=== PATIENT | female | born 1950 | race Caucasian/White ===

== ENCOUNTER 2023-08-20 12:01 | Inpatient (IN) | payer MEDICAID ==
[2023-08-20] VITALS (33 sets, daily range): BP systolic 74–151; BP diastolic 42–127; TEMP 97.8–100.7; O2SAT 90–100
[~2023-08-20] VITALS: Ht 152.4 cm; Wt 72.6 kg
[2023-08-20] MEDS ORDERED: PIPERACI/TAZO 3.375GM/D5W 50ML PB IV ONE (12:24)
[2023-08-20 12:25] LABS: BASOPHILS % (AUTO) 0.3 % (0.0-2.0); EOSINOPHILS % (AUTO) 0.3 % (0.0-6.0); HEMATOCRIT 33 % (33-45); HEMOGLOBIN 10.2 g/dL (11.5-14.8); LYMPHOCYTES # (AUTO) 0.7 K/uL (0.8-4.8); MEAN CORPUSCULAR HEMOGLOBIN 32 PG (26.0-33.0); MEAN CORPUSCULAR HGB CONC 31 g/dl (31.0-36.0); MEAN CORPUSCULAR VOLUME 102 fL (82-100); MONOCYTES # (AUTO) 0.2 K/uL (0.1-1.30); MONOCYTES % (AUTO) 4.9 % (2.0-12.0); NEUTROPHILS # (AUTO) 2.6 K/uL (1.8-8.9); NEUTROPHILS % (AUTO) 75.5 % (43.0-81.0); PLATELET COUNT (AUTO) 138 K/uL (150-450); RED CELL DISTRIBUTION WIDTH 18.1 % (11.5-15.0); WHITE BLOOD COUNT (AUTO) 3.4 K/uL (4.3-11.0)
[2023-08-20] MEDS ORDERED: PIPERACILLIN /TAZOBACTAM 3.375 G in IV D5W 50 ML IV ONE (12:30)
[2023-08-20] MEDS ORDERED: AZITHROMYCIN 500 MG in IV D5W 250 ML IV ONE (12:30)
[2023-08-20] MEDS ORDERED: VANCOMYCIN 1 GM in IV D5W 250 ML IV ONE (12:30)
[2023-08-20 12:34] LABS: CALCIUM, SERUM 9.3 mg/dL (8.5-10.1); CARBON DIOXIDE 19 mmol/L (21-32); CHLORIDE 116 mmol/L (98-107); CREATININE 4.4 mg/dL (0.6-1.3); GLUCOSE 189 mg/dL (74-106); POTASSIUM 5.1 mmol/L (3.5-5.1); SODIUM SERUM 155 mmol/L (136-145)
[2023-08-20 12:40] LABS: ALANINE AMINOTRANSFERASE 40 U/L (12-78); ALBUMIN 2.2 g/dL (3.4-5.0); ALKALINE PHOSPHATASE 96 U/L (46-116); ASPARTATE AMINOTRANSFERASE 11 U/L (15-37); BILIRUBIN,DIRECT 0.2 mg/dL (0.0-0.2); BILIRUBIN,TOTAL 0.5 mg/dL (0.2-1.0); TOTAL PROTEIN, SERUM 6.5 g/dL (6.4-8.2)
[2023-08-20 12:41] LABS: UREA NITROGEN, BLOOD 157 mg/dL (7-18)
[2023-08-20 12:44] LABS: LACTIC ACID 6.6 mmol/L (0.4-2.0)
[2023-08-20 12:52] LABS: APPEARANCE,URINE CLOUDY (CLEAR); BILIRUBIN,URINE 2+ (NEGATIVE); BLOOD, URINE NEGATIVE Ery/uL (NEGATIVE); COLOR,URINE DARK YELLOW (YELLOW); KETONES,URINE 1+ mg/dL (NEGATIVE); LEUKOCYTE ESTERASE ,URINE 3+ (NEGATIVE); NITRITE, URINE NEGATIVE (NEGATIVE); PROTEIN,URINE 1+ mg/dl (NEGATIVE); UGLUCOSE NEGATIVE (NEGATIVE)
[2023-08-20 12:58] LABS: INR 1.01 (0.91-1.10); PARTIAL THROMBOPLASTIN TIME 24.8 SEC (24.3-34.3); PROTHROMBIN TIME 10.7 SECS (9.2-11.1)
[2023-08-20] MEDS ORDERED: IV NS 0.9% 1,000 ML BAG IV ONE ×2 (13:00→13:30)
[2023-08-20 13:05] LABS: ADD URINE CULTURE YES; BACTERIA,URINE Moderate /HPF (None Seen); RBC,URINE 0-2 /HPF (0-2); SQUAMOUS EPITHELIAL CELL,UR Moderate /HPF (None Seen); WBC,URINE 81-100 /HPF (0-3)
[2023-08-20] MEDS ORDERED: LACT-96 GT (13:10)
[2023-08-20] MEDS ORDERED: DOCU100T2 GT (13:10)
[2023-08-20] MEDS ORDERED: SENN-261 GT (13:10)
[2023-08-20] MEDS ORDERED: IPRA3AMP22 IH (13:10)
[2023-08-20] MEDS ORDERED: BISA10SU11 RC (13:10)
[2023-08-20] MEDS ORDERED: MAGN400O6 GT (13:10)
[2023-08-20] MEDS ORDERED: METO25TA6 GT (13:10)
[2023-08-20] MEDS ORDERED: LEVO250T59 GT (13:10)
[2023-08-20] MEDS ORDERED: LEVE100S GT (13:10)
[2023-08-20] MEDS ORDERED: GUAI100S9 GT (13:10)
[2023-08-20] MEDS ORDERED: CLON0.1T GT (13:10)
[2023-08-20] MEDS ORDERED: ACET-2605 GT (13:10)
[2023-08-20] MEDS ORDERED: DILT30TA14 GT (13:10)
[2023-08-20] MEDS ORDERED: FAMO20TA8 GT (13:10)
[2023-08-20] MEDS ORDERED: PREG50CA GT (13:10)
[2023-08-20] MEDS ORDERED: NA P133E RC (13:10)
[2023-08-20] MEDS ORDERED: HYDR-4303 GT (13:10)
[2023-08-20] MEDS ORDERED: DIVA125C2 GT (13:10)
[2023-08-20] MEDS ORDERED: HYDR-4076 GT (13:10)
[2023-08-20] MEDS ORDERED: ACET-868 GT (13:10)
[2023-08-20] MEDS ORDERED: LISI20TA30 GT (13:10)
[2023-08-20] MEDS ORDERED: ASPI-1169 GT (13:10)
[2023-08-20] MEDS ORDERED: IV NS 0.9% 1,000 ML IV STA (15:53)
[2023-08-20] MEDS ORDERED: Z GUARD REMEDY 4 OZ OINT TP PRN (16:00)
[2023-08-20] MEDS ORDERED: ONDANSETRON HCL/PF 4 MG/2 ML VIAL IVP PRN (16:00)
[2023-08-20] MEDS ORDERED: ACETAMINOPHEN ES 500 MG TABLET GT PRN (16:00)
[2023-08-20] MEDS ORDERED: CEFEPIME 1 GM VIAL IM SCH (16:00)
[2023-08-20] MEDS ORDERED: NOREPINEPHRINE 32 MG in IV NS 0.9% 218 ML IV PRN ×2 (16:00→17:00)
[2023-08-20] MEDS: IV 1/2NS 1000 ML 1,000 ML IV SCH ×2 (18:10→18:48)
[2023-08-20] MEDS: HEPARIN SODIUM, PORCINE 5000 UNITS/1 ML VIAL SQ SCH ×2 (18:26→20:50)
[2023-08-20] MEDS: NOREPINEPHRINE 8 MG in IV NS 0.9% 242 ML IV PRN (18:38)
[2023-08-20] MEDS: CEFEPIME 1 GM in IV D5W 50 ML IV SCH (19:42)
[2023-08-20 19:45] LABS: ALANINE AMINOTRANSFERASE 33 U/L (12-78); ALBUMIN 1.9 g/dL (3.4-5.0); ALKALINE PHOSPHATASE 75 U/L (46-116); ASPARTATE AMINOTRANSFERASE 12 U/L (15-37); BILIRUBIN,TOTAL 0.5 mg/dL (0.2-1.0); CALCIUM, SERUM 8.4 mg/dL (8.5-10.1); CARBON DIOXIDE 19 mmol/L (21-32); CHLORIDE 116 mmol/L (98-107); CREATININE 3.3 mg/dL (0.6-1.3); GLUCOSE 100 mg/dL (74-106); POTASSIUM 5.1 mmol/L (3.5-5.1); SODIUM SERUM 151 mmol/L (136-145); TOTAL PROTEIN, SERUM 5.7 g/dL (6.4-8.2)
[2023-08-20] MEDS: IV LR 1000 ML 1,000 ML IV PRN (19:52)
[2023-08-20 19:53] LABS: UREA NITROGEN, BLOOD 129 mg/dL (7-18)
[2023-08-20 20:16] LABS: LACTIC ACID 4.5 mmol/L (0.4-2.0)
[2023-08-20 20:40] LABS: THYROID STIMULATING HORMONE 0.833 uIU/mL (0.358-3.74)
[2023-08-20 20:52] LABS: CHOLESTEROL 114 mg/dL (<200); HDL CHOLESTEROL 38 mg/dL (40-60); LDL 60 mg/dL (0-99); TRIGLYCERIDES 94 mg/dL (30-150)
[2023-08-20] MEDS ORDERED: IV NS 0.9% 500 ML IV ONE (21:00)
[2023-08-20] MEDS: LEVETIRACETAM SOL (5 ML) 100 MG/ML UDC GT SCH (21:13)
[2023-08-20 21:50] LABS: BASOPHILS % (AUTO) 0.2 % (0.0-2.0); EOSINOPHILS % (AUTO) 0.2 % (0.0-6.0); HEMATOCRIT 25 % (33-45); HEMOGLOBIN 8.2 g/dL (11.5-14.8); LYMPHOCYTES # (AUTO) 0.6 K/uL (0.8-4.8); LYMPHOCYTES % (AUTO) 12.2 % (20.0-44.0); MEAN CORPUSCULAR HEMOGLOBIN 32 PG (26.0-33.0); MEAN CORPUSCULAR HGB CONC 33 g/dl (31.0-36.0); MEAN CORPUSCULAR VOLUME 97 fL (82-100); MONOCYTES # (AUTO) 0.2 K/uL (0.1-1.30); NEUTROPHILS # (AUTO) 3.9 K/uL (1.8-8.9); NEUTROPHILS % (AUTO) 82.4 % (43.0-81.0); PLATELET COUNT (AUTO) 115 K/uL (150-450); RED BLOOD CELL COUNT(AUTO) 2.58 MIL/uL (4.0-5.2); RED CELL DISTRIBUTION WIDTH 16.6 % (11.5-15.0); WHITE BLOOD COUNT (AUTO) 4.7 K/uL (4.3-11.0)
[2023-08-20] MEDS: ACETAMINOPHEN 650 MG/20.3 ML UDC GT PRN (21:54)
[2023-08-20 22:02] LABS: CALCIUM, SERUM 8.5 mg/dL (8.5-10.1); CARBON DIOXIDE 20 mmol/L (21-32); CHLORIDE 115 mmol/L (98-107); GLUCOSE 80 mg/dL (74-106); PHOSPHORUS 3.3 mg/dL (2.5-4.9); POTASSIUM 5.2 mmol/L (3.5-5.1); SODIUM SERUM 150 mmol/L (136-145)
[2023-08-20 22:09] LABS: UREA NITROGEN, BLOOD 127 mg/dL (7-18)
[2023-08-20 23:00] LABS: BAND % (MANUAL) 28 % (0.0-5.0); LYMPHOCYTES % (MANUAL) 11 % (16-48); METAMYELOCYTES % 2 % (0-0); MONOCYTES % (MANUAL) 4 % (0-11.0); NEUTROPHILS % (MANUAL) 55 (42-76); PLATELET ESTIMATE DECREASED
[2023-08-21] VITALS (95 sets, daily range): BP systolic 91–145; BP diastolic 47–98; TEMP 99.5–102.6; O2SAT 90–100
[2023-08-21] MEDS: ACETAMINOPHEN 650 MG/20.3 ML UDC GT PRN ×2 (05:13→19:41)
[2023-08-21] MEDS: IV LR 1000 ML 1,000 ML IV PRN ×3 (05:57→22:47)
[2023-08-21 06:07] LABS: BASOPHILS % (AUTO) 0.1 % (0.0-2.0); EOSINOPHILS % (AUTO) 0.4 % (0.0-6.0); HEMATOCRIT 25 % (33-45); HEMOGLOBIN 8.2 g/dL (11.5-14.8); LYMPHOCYTES # (AUTO) 0.7 K/uL (0.8-4.8); LYMPHOCYTES % (AUTO) 7.8 % (20.0-44.0); MEAN CORPUSCULAR HEMOGLOBIN 32 PG (26.0-33.0); MEAN CORPUSCULAR HGB CONC 33 g/dl (31.0-36.0); MEAN CORPUSCULAR VOLUME 96 fL (82-100); MONOCYTES # (AUTO) 0.2 K/uL (0.1-1.30); MONOCYTES % (AUTO) 2.4 % (2.0-12.0); NEUTROPHILS % (AUTO) 89.3 % (43.0-81.0); PLATELET COUNT (AUTO) 125 K/uL (150-450); RED CELL DISTRIBUTION WIDTH 16.5 % (11.5-15.0); WHITE BLOOD COUNT (AUTO) 8.9 K/uL (4.3-11.0)
[2023-08-21] MEDS: NOREPINEPHRINE 8 MG in IV NS 0.9% 242 ML IV PRN ×2 (06:34→16:43)
[2023-08-21] MEDS: ASPIRIN 81 MG TAB.CHEW GT SCH (08:44)
[2023-08-21] MEDS: HEPARIN SODIUM, PORCINE 5000 UNITS/1 ML VIAL SQ SCH ×2 (08:44→20:51)
[2023-08-21] MEDS: LEVETIRACETAM SOL (5 ML) 100 MG/ML UDC GT SCH ×2 (08:44→20:53)
[2023-08-21] MEDS: PANTOPRAZOLE 40 MG VIAL IV SCH (08:44)
[2023-08-21 09:27] LABS: CALCIUM, SERUM 8.4 mg/dL (8.5-10.1); CARBON DIOXIDE 18 mmol/L (21-32); CHLORIDE 117 mmol/L (98-107); CREATININE 2.2 mg/dL (0.6-1.3); GLUCOSE 95 mg/dL (74-106); MAGNESIUM 3.3 mg/dL (1.8-2.4); PHOSPHORUS 4.2 mg/dL (2.5-4.9); POTASSIUM 4.8 mmol/L (3.5-5.1); SODIUM SERUM 147 mmol/L (136-145)
[2023-08-21 09:42] LABS: UREA NITROGEN, BLOOD 94 mg/dL (7-18)
[2023-08-21 09:47] LABS: ABG BASE EXCESS -5.4 mmol/L; ABG OXYGEN SATURATION 97.7 % (92.0-98.5); ABG PCO2 29.1 mmHg (35.0-45.0); ABG PH 7.413 (7.350-7.450); ABG PO2 115.5 mmHg (75.0-100.0); ABG TOTAL HEMOGLOBIN 10.5 G/dL (12.0-16.0); COHb 0.3 % (0.5-1.5); MetHb 0.1 % (0.0-1.5); O2Hb 97.3 % (94.0-97.0); SITE, ABG Right Radial
[2023-08-21 09:47] LABS: ABG BASE EXCESS -1.8 mmol/L; ABG OXYGEN SATURATION 92.3 % (92.0-98.5); ABG PCO2 23.2 mmHg (35.0-45.0); ABG PH 7.543 (7.350-7.450); ABG PO2 60.5 mmHg (75.0-100.0); COHb 0.3 % (0.5-1.5); MetHb 0.3 % (0.0-1.5); O2Hb 91.7 % (94.0-97.0); SITE, ABG Right Radial; VENT MODE, BG NC 40%
[2023-08-21 09:47] LABS: ABG BASE EXCESS -4.2 mmol/L; ABG OXYGEN SATURATION 94.4 % (92.0-98.5); ABG PH 7.507 (7.350-7.450); ABG TOTAL HEMOGLOBIN 8.7 G/dL (12.0-16.0); AaDO2 192.8 mmHg; COHb 0.3 % (0.5-1.5); MetHb 0.3 % (0.0-1.5); O2Hb 93.8 % (94.0-97.0); SITE, ABG Right Radial; VENT MODE, BG 5 LPM NC
[2023-08-21] MEDS ORDERED: SODIUM POLYSTYRENE SULFONATE 15 G/60 ML BOTTLE PO ONE (10:00)
[2023-08-21 13:26] LABS: CALCIUM, SERUM 9.1 mg/dL (8.5-10.1); CARBON DIOXIDE 20 mmol/L (21-32); CHLORIDE 118 mmol/L (98-107); CREATININE 1.9 mg/dL (0.6-1.3); GLUCOSE 93 mg/dL (74-106); POTASSIUM 4.3 mmol/L (3.5-5.1); SODIUM SERUM 149 mmol/L (136-145)
[2023-08-21 13:27] LABS: UREA NITROGEN, BLOOD 85 mg/dL (7-18)
[2023-08-21] MEDS: CEFEPIME 1 GM in IV D5W 50 ML IV SCH (19:16)
[2023-08-21 22:34] LABS: ANISOCYTOSIS 1+; BAND % (MANUAL) 8 % (0.0-5.0); EOSINOPHILS % (MANUAL) 1 % (0-4); LYMPHOCYTES % (MANUAL) 13 % (16-48); MYELOCYTES % 2 % (0-0); NEUTROPHILS % (MANUAL) 76 (42-76); PLATELET ESTIMATE DECREASED; ROULEAUX 1+
[2023-08-21] MEDS ORDERED: VANCOMYCIN 1 GM in IV D5W 250 ML IV SCH (23:00)
[2023-08-21] MEDS ORDERED: VANCOMYCIN 1 GM in IV D5W 250ml IV SCH (23:00)
[2023-08-22] VITALS (93 sets, daily range): BP systolic 74–144; BP diastolic 40–101; TEMP 99–101.4; O2SAT 88–100
[2023-08-22] MEDS ORDERED: AMIODARONE 150 MG/3 ML VIAL IV ONE ×3 (01:59→02:18)
[2023-08-22] MEDS ORDERED: AMIODARONE 150 MG in IV D5W 100 ML IV ONE (02:00)
[2023-08-22] MEDS: AMIODARONE 450 MG in IV D5W 241 ML IV PRN ×2 (02:22→11:14)
[2023-08-22 05:59] LABS: BASOPHILS % (AUTO) 0.1 % (0.0-2.0); EOSINOPHILS # (AUTO) 0.1 K/uL (0.0-0.7); EOSINOPHILS % (AUTO) 0.5 % (0.0-6.0); HEMATOCRIT 22 % (33-45); HEMOGLOBIN 7.2 g/dL (11.5-14.8); LYMPHOCYTES # (AUTO) 0.4 K/uL (0.8-4.8); LYMPHOCYTES % (AUTO) 3.6 % (20.0-44.0); MEAN CORPUSCULAR HEMOGLOBIN 31 PG (26.0-33.0); MEAN CORPUSCULAR HGB CONC 33 g/dl (31.0-36.0); MEAN CORPUSCULAR VOLUME 96 fL (82-100); MONOCYTES # (AUTO) 0.2 K/uL (0.1-1.30); MONOCYTES % (AUTO) 1.8 % (2.0-12.0); NEUTROPHILS # (AUTO) 10.4 K/uL (1.8-8.9); PLATELET COUNT (AUTO) 131 K/uL (150-450); RED BLOOD CELL COUNT(AUTO) 2.29 MIL/uL (4.0-5.2); RED CELL DISTRIBUTION WIDTH 15.4 % (11.5-15.0)
[2023-08-22 06:13] LABS: CREATINE KINASE, TOTAL 734 U/L (26-192)
[2023-08-22 06:16] LABS: ALANINE AMINOTRANSFERASE 37 U/L (12-78); ALKALINE PHOSPHATASE 102 U/L (46-116); ASPARTATE AMINOTRANSFERASE 35 U/L (15-37); BILIRUBIN,TOTAL 0.4 mg/dL (0.2-1.0); CALCIUM, SERUM 8.4 mg/dL (8.5-10.1); CARBON DIOXIDE 23 mmol/L (21-32); CHLORIDE 116 mmol/L (98-107); CREATININE 1.5 mg/dL (0.6-1.3); GLUCOSE 118 mg/dL (74-106); MAGNESIUM 2.3 mg/dL (1.8-2.4); PHOSPHORUS 3.4 mg/dL (2.5-4.9); POTASSIUM 2.9 mmol/L (3.5-5.1); SODIUM SERUM 151 mmol/L (136-145); TOTAL PROTEIN, SERUM 5.2 g/dL (6.4-8.2); UREA NITROGEN, BLOOD 59 mg/dL (7-18)
[2023-08-22] MEDS: NOREPINEPHRINE 8 MG in IV NS 0.9% 242 ML IV PRN ×2 (07:02→22:54)
[2023-08-22 07:17] LABS: ALBUMIN 1.4 g/dL (3.4-5.0)
[2023-08-22] MEDS: ASPIRIN 81 MG TAB.CHEW GT SCH (08:57)
[2023-08-22] MEDS: PANTOPRAZOLE 40 MG VIAL IV SCH (08:57)
[2023-08-22] MEDS: HEPARIN SODIUM, PORCINE 5000 UNITS/1 ML VIAL SQ SCH ×2 (09:00→21:00)
[2023-08-22] MEDS: LEVETIRACETAM SOL (5 ML) 100 MG/ML UDC GT SCH ×2 (09:00→21:29)
[2023-08-22] MEDS ORDERED: ACETAMINOPHEN 650 MG/20.3 ML UDC GT PRN (10:00)
[2023-08-22 10:17] LABS: BAND % (MANUAL) 1 % (0.0-5.0); LYMPHOCYTES % (MANUAL) 5 % (16-48); MONOCYTES % (MANUAL) 2 % (0-11.0); NEUTROPHILS % (MANUAL) 92 (42-76); PLATELET ESTIMATE DECREASED
[2023-08-22 10:18] LABS: ANISOCYTOSIS 1+
[2023-08-22] MEDS: IV LR 1000 ML 1,000 ML IV PRN (10:45)
[2023-08-22] MEDS ORDERED: VANCOMYCIN 500 MG in IV D5W 100ml IV SCH (12:00)
[2023-08-22] MEDS: POTASSIUM CL. PREMIX PERIPHER. 50 ML IV SCH ×5 (12:51→17:24)
[2023-08-22] MEDS: ACETAMINOPHEN 650 MG/20.3 ML UDC GT PRN (13:03)
[2023-08-22] MEDS: CEFEPIME 1 GM in IV D5W 50 ML IV SCH (19:53)
[2023-08-22 21:41] LABS: HEMOGLOBIN 7.8 g/dL (11.5-14.8)
[2023-08-22] MEDS: VANCOMYCIN HCL 0.75 GM in IV D5W 250 ML IV SCH (23:20)
[2023-08-23] VITALS (88 sets, daily range): BP systolic 102–142; BP diastolic 45–82; TEMP 98.8–99.8; O2SAT 93–100
[2023-08-23] MEDS: IV LR 1000 ML 1,000 ML IV PRN ×3 (01:49→17:32)
[2023-08-23 05:45] LABS: CARBON DIOXIDE 20 mmol/L (21-32); CHLORIDE 115 mmol/L (98-107); CREATININE 1.2 mg/dL (0.6-1.3); GLUCOSE 105 mg/dL (74-106); SODIUM SERUM 148 mmol/L (136-145); UREA NITROGEN, BLOOD 46 mg/dL (7-18)
[2023-08-23 05:57] LABS: POTASSIUM 2.7 mmol/L (3.5-5.1)
[2023-08-23 06:07] LABS: CREATININE KINASE (CK),MB 3.5 ng/mL (0.0-5.3); PTH, INTACT 40 pg/mL (15-65)
[2023-08-23] MEDS ORDERED: POTASSIUM CHLORIDE 20 MEQ POWDER PACKET GT ONE (06:30)
[2023-08-23] MEDS ORDERED: POTASSIUM CHLORIDE 20 MEQ POWDER PACKET GT SCH (09:00)
[2023-08-23] MEDS: PANTOPRAZOLE 40 MG VIAL IV SCH (09:24)
[2023-08-23] MEDS: HEPARIN SODIUM, PORCINE 5000 UNITS/1 ML VIAL SQ SCH ×2 (10:00→20:22)
[2023-08-23] MEDS: ASPIRIN 81 MG TAB.CHEW GT SCH (10:25)
[2023-08-23] MEDS: LEVETIRACETAM SOL (5 ML) 100 MG/ML UDC GT SCH ×2 (10:25→20:30)
[2023-08-23 11:07] LABS: *SPE A/G RATIO 0.6 (0.7-1.7); *SPE ALBUMIN 1.7 g/dL (2.9-4.4); *SPE ALPHA-1-GLOBULIN 0.4 g/dL (0.0-0.4); *SPE ALPHA-2-GLOBULIN 1.1 g/dL (0.4-1.0); *SPE BETA GLOBULIN 0.8 g/dL (0.7-1.3); *SPE GLOBULIN, TOTAL 2.8 g/dL (2.2-3.9); *SPE M-SPIKE 0.1 g/dL (Not Observed); *SPE PROTEIN TOTAL 4.5 g/dL (6.0-8.5); *SPEGAMMA GLOBULIN 0.5 g/dL (0.4-1.8)
[2023-08-23] MEDS: CEFEPIME 1 GM in IV D5W 50 ML IV SCH (18:24)
[2023-08-23] MEDS: VANCOMYCIN HCL 0.75 GM in IV D5W 250 ML IV SCH (22:33)
[2023-08-24] VITALS (48 sets, daily range): BP systolic 92–139; BP diastolic 54–89; TEMP 98–99; O2SAT 93–100
[2023-08-24] MEDS: IV LR 1000 ML 1,000 ML IV PRN ×2 (03:12→11:09)
[2023-08-24 04:20] LABS: CALCIUM, SERUM 7.8 mg/dL (8.5-10.1); CARBON DIOXIDE 21 mmol/L (21-32); CHLORIDE 117 mmol/L (98-107); GLUCOSE 71 mg/dL (74-106); POTASSIUM 3.8 mmol/L (3.5-5.1); SODIUM SERUM 148 mmol/L (136-145); UREA NITROGEN, BLOOD 33 mg/dL (7-18)
[2023-08-24] MEDS ORDERED: AMIODARONE 450 MG in IV D5W 241 ML IV PRN (06:00)
[2023-08-24] MEDS ORDERED: AMIODARONE 150 MG/3 ML VIAL IV ONE (06:15)
[2023-08-24] MEDS: HEPARIN SODIUM, PORCINE 5000 UNITS/1 ML VIAL SQ SCH ×2 (09:00→21:00)
[2023-08-24] MEDS: PANTOPRAZOLE 40 MG VIAL IV SCH (09:40)
[2023-08-24] MEDS: ASPIRIN 81 MG TAB.CHEW GT SCH (09:41)
[2023-08-24] MEDS: LEVETIRACETAM SOL (5 ML) 100 MG/ML UDC GT SCH ×2 (09:41→21:07)
[2023-08-24] MEDS: CEFEPIME 1 GM in IV D5W 50 ML IV SCH (19:55)
[2023-08-24] MEDS: VANCOMYCIN HCL 0.75 GM in IV D5W 250 ML IV SCH ×2 (23:22→23:23)
[2023-08-25] VITALS (11 sets, daily range): BP systolic 121–150; BP diastolic 56–91; TEMP 98.4–99.1; O2SAT 95–97
[2023-08-25 06:33] LABS: BASOPHILS % (AUTO) 0.2 % (0.0-2.0); EOSINOPHILS # (AUTO) 0.2 K/uL (0.0-0.7); EOSINOPHILS % (AUTO) 3.4 % (0.0-6.0); LYMPHOCYTES # (AUTO) 0.8 K/uL (0.8-4.8); LYMPHOCYTES % (AUTO) 15.1 % (20.0-44.0); MEAN CORPUSCULAR HEMOGLOBIN 32 PG (26.0-33.0); MEAN CORPUSCULAR HGB CONC 33 g/dl (31.0-36.0); MEAN CORPUSCULAR VOLUME 96 fL (82-100); MONOCYTES # (AUTO) 0.3 K/uL (0.1-1.30); MONOCYTES % (AUTO) 5.6 % (2.0-12.0); NEUTROPHILS # (AUTO) 3.9 K/uL (1.8-8.9); NEUTROPHILS % (AUTO) 75.7 % (43.0-81.0); PLATELET COUNT (AUTO) 177 K/uL (150-450); RED CELL DISTRIBUTION WIDTH 15.4 % (11.5-15.0); WHITE BLOOD COUNT (AUTO) 5.2 K/uL (4.3-11.0)
[2023-08-25 07:06] LABS: HEMATOCRIT 20 % (33-45)
[2023-08-25 07:08] LABS: HEMOGLOBIN 6.7 g/dL (11.5-14.8)
[2023-08-25 07:13] LABS: CREATININE 0.9 mg/dL (0.6-1.3); MAGNESIUM 1.9 mg/dL (1.8-2.4); PHOSPHORUS 3.4 mg/dL (2.5-4.9); POTASSIUM 3.3 mmol/L (3.5-5.1)
[2023-08-25] MEDS ORDERED: POTASSIUM CHLORIDE 20 MEQ POWDER PACKET GT SCH (08:30)
[2023-08-25 08:46] LABS: IRON, SERUM 21 ug/dl (50-175); TOTAL IRON BINDING CAPACITY 115 ug/dl (250-450)
[2023-08-25 09:00] LABS: FERRITIN 492 ng/mL (8-388)
[2023-08-25] MEDS: HEPARIN SODIUM, PORCINE 5000 UNITS/1 ML VIAL SQ SCH ×2 (09:00→21:00)
[2023-08-25] MEDS: LEVETIRACETAM SOL (5 ML) 100 MG/ML UDC GT SCH ×2 (09:19→20:42)
[2023-08-25] MEDS: PANTOPRAZOLE 40 MG VIAL IV SCH (09:19)
[2023-08-25] MEDS: CEFEPIME 2 GM in IV D5W 100 ML IV SCH ×2 (12:19→23:02)
[2023-08-25 18:29] LABS: LYMPHOCYTES % (MANUAL) 19 % (16-48); MONOCYTES % (MANUAL) 5 % (0-11.0); NEUTROPHILS % (MANUAL) 76 (42-76); PLATELET ESTIMATE ADEQUATE
[2023-08-25] MEDS: VANCOMYCIN HCL 0.75 GM in IV D5W 250 ML IV SCH (23:35)
[2023-08-26] VITALS: BP 142/65; TEMP 98.2; O2SAT 95
[2023-08-26 04:00] VITALS: BP 140/50; TEMP 97.8; O2SAT 97
[2023-08-26 07:01] LABS: BASOPHILS % (AUTO) 0.1 % (0.0-2.0); EOSINOPHILS # (AUTO) 0.1 K/uL (0.0-0.7); EOSINOPHILS % (AUTO) 1.5 % (0.0-6.0); HEMATOCRIT 24 % (33-45); LYMPHOCYTES # (AUTO) 0.9 K/uL (0.8-4.8); LYMPHOCYTES % (AUTO) 13.3 % (20.0-44.0); MEAN CORPUSCULAR HEMOGLOBIN 31 PG (26.0-33.0); MEAN CORPUSCULAR HGB CONC 34 g/dl (31.0-36.0); MEAN CORPUSCULAR VOLUME 91 fL (82-100); MONOCYTES # (AUTO) 0.3 K/uL (0.1-1.30); MONOCYTES % (AUTO) 4.8 % (2.0-12.0); NEUTROPHILS # (AUTO) 5.4 K/uL (1.8-8.9); NEUTROPHILS % (AUTO) 80.3 % (43.0-81.0); PLATELET COUNT (AUTO) 233 K/uL (150-450); RED BLOOD CELL COUNT(AUTO) 2.62 MIL/uL (4.0-5.2); RED CELL DISTRIBUTION WIDTH 17.9 % (11.5-15.0); WHITE BLOOD COUNT (AUTO) 6.8 K/uL (4.3-11.0)
[2023-08-26 07:27] LABS: CALCIUM, SERUM 8.1 mg/dL (8.5-10.1); CREATININE 0.8 mg/dL (0.6-1.3); PHOSPHORUS 3.5 mg/dL (2.5-4.9); POTASSIUM 3.4 mmol/L (3.5-5.1)
[2023-08-26 08:00] VITALS: BP 128/61; TEMP 98.2; O2SAT 97
[2023-08-26] MEDS: HEPARIN SODIUM, PORCINE 5000 UNITS/1 ML VIAL SQ SCH ×2 (08:34→20:19)
[2023-08-26] MEDS: LEVETIRACETAM SOL (5 ML) 100 MG/ML UDC GT SCH ×2 (08:39→20:19)
[2023-08-26] MEDS: PANTOPRAZOLE 40 MG VIAL IV SCH (08:39)
[2023-08-26] MEDS ORDERED: POTASSIUM CHLORIDE 20 MEQ POWDER PACKET NG SCH (09:30)
[2023-08-26] MEDS: CEFEPIME 2 GM in IV D5W 100 ML IV SCH ×2 (10:37→22:11)
[2023-08-26] MEDS: SOD FERRIC GLUC 125 MG in IV NS 0.9% 100 ML IV SCH (14:49)
[2023-08-26 16:00] VITALS: BP 142/64; TEMP 99.2; O2SAT 95
[2023-08-26 16:01] VITALS: BP 142/64; TEMP 98.2; O2SAT 95
[2023-08-26 20:00] VITALS: BP 146/70; TEMP 98.4; O2SAT 97
[2023-08-26] MEDS: VANCOMYCIN HCL 0.75 GM in IV D5W 250 ML IV SCH (22:11)
[2023-08-27] VITALS: BP 140/78; TEMP 99.5; O2SAT 96
[2023-08-27 05:00] VITALS: BP 129/56; TEMP 98.7; O2SAT 96
[2023-08-27 06:25] LABS: BASOPHILS % (AUTO) 0.4 % (0.0-2.0); EOSINOPHILS # (AUTO) 0.1 K/uL (0.0-0.7); EOSINOPHILS % (AUTO) 1.4 % (0.0-6.0); HEMATOCRIT 27 % (33-45); HEMOGLOBIN 8.7 g/dL (11.5-14.8); LYMPHOCYTES % (AUTO) 12.8 % (20.0-44.0); MEAN CORPUSCULAR HEMOGLOBIN 30 PG (26.0-33.0); MEAN CORPUSCULAR HGB CONC 32 g/dl (31.0-36.0); MEAN CORPUSCULAR VOLUME 95 fL (82-100); MONOCYTES # (AUTO) 0.3 K/uL (0.1-1.30); MONOCYTES % (AUTO) 4.4 % (2.0-12.0); NEUTROPHILS # (AUTO) 6.3 K/uL (1.8-8.9); PLATELET COUNT (AUTO) 280 K/uL (150-450); RED BLOOD CELL COUNT(AUTO) 2.85 MIL/uL (4.0-5.2); RED CELL DISTRIBUTION WIDTH 18.7 % (11.5-15.0); WHITE BLOOD COUNT (AUTO) 7.8 K/uL (4.3-11.0)
[2023-08-27 07:00] LABS: CARBON DIOXIDE 17 mmol/L (21-32); CHLORIDE 116 mmol/L (98-107); CREATININE 0.8 mg/dL (0.6-1.3); GLUCOSE 78 mg/dL (74-106); MAGNESIUM 1.9 mg/dL (1.8-2.4); PHOSPHORUS 3.1 mg/dL (2.5-4.9); POTASSIUM 3.3 mmol/L (3.5-5.1); SODIUM SERUM 147 mmol/L (136-145)
[2023-08-27 07:19] LABS: UREA NITROGEN, BLOOD 20 mg/dL (7-18)
[2023-08-27 07:30] VITALS: BP 148/76; TEMP 97.7; O2SAT 95
[2023-08-27] MEDS: LEVETIRACETAM SOL (5 ML) 100 MG/ML UDC GT SCH ×2 (09:14→21:15)
[2023-08-27] MEDS: PANTOPRAZOLE 40 MG VIAL IV SCH (09:14)
[2023-08-27] MEDS: HEPARIN SODIUM, PORCINE 5000 UNITS/1 ML VIAL SQ SCH (09:20)
[2023-08-27] MEDS ORDERED: POTASSIUM CHLORIDE 20 MEQ POWDER PACKET GT SCH (10:00)
[2023-08-27] MEDS: CEFEPIME 2 GM in IV D5W 100 ML IV SCH ×2 (10:58→22:12)
[2023-08-27] MEDS ORDERED: JEVITY 1.2 CAL 1,000 ML BOTTLE GT PRN (11:00)
[2023-08-27] MEDS: Potassium Chloride 20 MEQ in IV D5W 1,000 ML IV SCH ×2 (12:38→22:59)
[2023-08-27] MEDS: SOD FERRIC GLUC 125 MG in IV NS 0.9% 100 ML IV SCH (14:33)
[2023-08-27 16:00] VITALS: BP 132/98; TEMP 99; O2SAT 94
[2023-08-27 20:00] VITALS: BP 137/61; TEMP 97.5; O2SAT 93
[2023-08-27] MEDS: VANCOMYCIN HCL 0.75 GM in IV D5W 250 ML IV SCH (22:11)
[2023-08-28 07:30] VITALS: BP 107/63; TEMP 98.4; O2SAT 95
[2023-08-28 08:03] LABS: CALCIUM, SERUM 7.9 mg/dL (8.5-10.1); CREATININE 0.8 mg/dL (0.6-1.3); POTASSIUM 3.3 mmol/L (3.5-5.1)
[2023-08-28] MEDS ORDERED: PANTOPRAZOLE 40 MG/PACK PACK NG SCH (09:00)
[2023-08-28] MEDS: LEVETIRACETAM SOL (5 ML) 100 MG/ML UDC GT SCH (10:02)
[2023-08-28] MEDS: POTASSIUM CHLORIDE 20 MEQ TAB.PRT.SR PO SCH ×2 (10:03→10:52)
[2023-08-28] MEDS: CEFEPIME 2 GM in IV D5W 100 ML IV SCH (11:17)
== END 2023-08-28 17:00 | DRG 720 ==
LOC: ER 12:01 → TELE1 14:53 → ICU 16:08 → TELE 08-24 16:51 → MED 08-27 12:09
PROVIDERS: ADMIT Nurse Practitioner Acute Care; ATTEND Nurse Practitioner Acute Care
PROC: 05H633Z Insertion of Infusion Device into Left Subclavian Vein, Percutaneous Approach (ICD-10-PCS; 2023-08-20)
PROC: B547ZZA Ultrasonography of Left Subclavian Vein, Guidance (ICD-10-PCS; 2023-08-20)
PROC: 30233N1 Transfusion of Nonautologous Red Blood Cells into Peripheral Vein, Percutaneous Approach (ICD-10-PCS; principal; 2023-08-25)
DX: A41.9 Sepsis, unspecified organism (principal); N17.0 Acute kidney failure with tubular necrosis; R65.21 Severe sepsis with septic shock; J69.0 Pneumonitis due to inhalation of food and vomit; E87.20 Acidosis, unspecified; G93.41 Metabolic encephalopathy; I50.33 Acute on chronic diastolic (congestive) heart failure; E44.0 Moderate protein-calorie malnutrition; D68.69 Other thrombophilia; N39.0 Urinary tract infection, site not specified; D69.6 Thrombocytopenia, unspecified; E86.0 Dehydration; E87.0 Hyperosmolality and hypernatremia; E87.5 Hyperkalemia; D53.9 Nutritional anemia, unspecified; D72.819 Decreased white blood cell count, unspecified; E87.6 Hypokalemia; I48.91 Unspecified atrial fibrillation; K29.70 Gastritis, unspecified, without bleeding; R13.10 Dysphagia, unspecified; Z86.73 Personal history of transient ischemic attack (TIA), and cerebral infarction without residual deficits; Z87.891 Personal history of nicotine dependence; Z79.82 Long term (current) use of aspirin; E87.8 Other disorders of electrolyte and fluid balance, not elsewhere classified; E88.09 Other disorders of plasma-protein metabolism, not elsewhere classified; B95.2 Enterococcus as the cause of diseases classified elsewhere; I11.0 Hypertensive heart disease with heart failure; Z68.31 Body mass index [BMI] 31.0-31.9, adult; Z16.24 Resistance to multiple antibiotics
CPT/HCPCS: 31720; 36410; 36415; 36600; 70450-TC; 71045-TC; 76770-TC; 80048-TC; 80053-TC; 80061-TC; 80076-TC; 80202-TC; 81001; 82550-TC; 82553; 82728-TC; 83540-TC; 83605-TC; 83735-TC; 83880; 83970; 84100-TC; 84155; 84165; 84443-TC; 84484-TC; 85025-TC; 85027-TC; 85385-TC; 85730-TC; 86850-TC; 87040-TC; 87086-TC; 93307-TC; 94640-TC; 94799-TC; A4223; C9113; G0378; J0282; J0456; J0692; J1644; J1953; J2543; J2916; J3370; J3480; J3490; J7030; J7040; J7050; J7060; J7070; J7120; P9016

== ENCOUNTER 2023-11-03 08:31 | Inpatient (IN) | payer MEDICAID, OTHER ==
[~2023-11-03] VITALS: Ht 167.6 cm; Wt 55.3 kg
[~2023-11-03 08:31] MED LIST: ACET-2605 GT; ACET-868 GT; ASPI-1169 GT; BISA10SU11 RC; CLON0.1T GT; DILT30TA14 GT; DIVA125C2 GT; DOCU100T2 GT; FAMO20TA8 GT; GUAI100S9 GT; HYDR-4076 GT; HYDR-4303 GT; IPRA3AMP22 IH; LACT-96 GT; LEVE100S GT; LEVO250T59 GT; LISI20TA30 GT; MAGN400O6 GT; METO25TA6 GT; NA P133E RC; PREG50CA GT; SENN-261 GT
[2023-11-03] MEDS ORDERED: APIX2.5T PO (09:08)
[2023-11-03] MEDS ORDERED: ZINC454O5 TP (09:08)
[2023-11-03 09:15] LABS: BASOPHILS # (AUTO) 0.1 K/uL (0.0-0.2); BASOPHILS % (AUTO) 1.2 % (0.0-2.0); EOSINOPHILS # (AUTO) 0.2 K/uL (0.0-0.7); EOSINOPHILS % (AUTO) 2.3 % (0.0-6.0); HEMATOCRIT 29 % (33-45); LYMPHOCYTES # (AUTO) 1.9 K/uL (0.8-4.8); LYMPHOCYTES % (AUTO) 25.1 % (20.0-44.0); MEAN CORPUSCULAR HEMOGLOBIN 32 PG (26.0-33.0); MEAN CORPUSCULAR HGB CONC 35 g/dl (31.0-36.0); MEAN CORPUSCULAR VOLUME 91 fL (82-100); MONOCYTES # (AUTO) 0.4 K/uL (0.1-1.30); NEUTROPHILS % (AUTO) 66.4 % (43.0-81.0); PLATELET COUNT (AUTO) 367 K/uL (150-450); RED BLOOD CELL COUNT(AUTO) 3.16 MIL/uL (4.0-5.2); RED CELL DISTRIBUTION WIDTH 14.2 % (11.5-15.0); WHITE BLOOD COUNT (AUTO) 7.5 K/uL (4.3-11.0)
[2023-11-03 09:30] LABS: CALCIUM, SERUM 9.6 mg/dL (8.5-10.1); CREATININE 0.9 mg/dL (0.6-1.3); POTASSIUM 4.4 mmol/L (3.5-5.1)
[2023-11-03 09:34] LABS: INR 1.02 (0.91-1.10); PARTIAL THROMBOPLASTIN TIME 24.5 SEC (24.3-34.3); PROTHROMBIN TIME 10.8 SECS (9.2-11.1)
[2023-11-03] MEDS ORDERED: Z GUARD REMEDY 4 OZ OINT TP PRN (12:30)
[2023-11-03] MEDS ORDERED: LEVETIRACETAM (500MG) 500 MG in IV NS 0.9% 100 ML IV SCH (12:30)
[2023-11-03] MEDS ORDERED: MAGNESIUM HYDROXIDE 30 ML UDC PO PRN (12:30)
[2023-11-03] MEDS ORDERED: ONDANSETRON HCL/PF 4 MG/2 ML VIAL IVP PRN (12:30)
[2023-11-03] MEDS ORDERED: ACETAMINOPHEN 325 MG TABLET PO PRN (12:30)
[2023-11-03] MEDS ORDERED: MAG HYDROX/AL HYDROX/SIMETH 30 ML UDC PO PRN (12:30)
[2023-11-03] MEDS: IV D5/ 0.9% NACL 1,000 ML IV PRN ×2 (13:45→21:40)
[2023-11-03 20:00] VITALS: BP 122/72; TEMP 97.8; O2SAT 93
[2023-11-03 20:37] VITALS: BP 122/72; TEMP 97.8; O2SAT 93
[2023-11-04] MEDS: LEVETIRACETAM (500MG) 500 MG in IV NS 0.9% 100 ML IV SCH ×2 (03:40→16:21)
[2023-11-04 07:29] LABS: BASOPHILS # (AUTO) 0.1 K/uL (0.0-0.2); BASOPHILS % (AUTO) 0.8 % (0.0-2.0); EOSINOPHILS # (AUTO) 0.1 K/uL (0.0-0.7); EOSINOPHILS % (AUTO) 1.8 % (0.0-6.0); HEMATOCRIT 30 % (33-45); HEMOGLOBIN 10.1 g/dL (11.5-14.8); LYMPHOCYTES # (AUTO) 1.6 K/uL (0.8-4.8); LYMPHOCYTES % (AUTO) 21.8 % (20.0-44.0); MEAN CORPUSCULAR HEMOGLOBIN 32 PG (26.0-33.0); MEAN CORPUSCULAR HGB CONC 34 g/dl (31.0-36.0); MEAN CORPUSCULAR VOLUME 95 fL (82-100); MONOCYTES # (AUTO) 0.5 K/uL (0.1-1.30); MONOCYTES % (AUTO) 6.3 % (2.0-12.0); NEUTROPHILS % (AUTO) 69.3 % (43.0-81.0); PLATELET COUNT (AUTO) 354 K/uL (150-450); RED BLOOD CELL COUNT(AUTO) 3.13 MIL/uL (4.0-5.2); RED CELL DISTRIBUTION WIDTH 13.8 % (11.5-15.0); WHITE BLOOD COUNT (AUTO) 7.2 K/uL (4.3-11.0)
[2023-11-04 08:00] VITALS: BP 127/69; TEMP 98.4; O2SAT 99
[2023-11-04 08:04] LABS: CALCIUM, SERUM 9.4 mg/dL (8.5-10.1); CREATININE 0.7 mg/dL (0.6-1.3); MAGNESIUM 2.4 mg/dL (1.8-2.4); PHOSPHORUS 3.6 mg/dL (2.5-4.9); POTASSIUM 3.8 mmol/L (3.5-5.1)
[2023-11-04 16:00] VITALS: BP 117/50; TEMP 98.2; O2SAT 98
[2023-11-04] MEDS: IV D5/ 0.9% NACL 1,000 ML IV PRN (16:35)
[2023-11-04 20:00] VITALS: BP 126/46; TEMP 98.2; O2SAT 99
[2023-11-05] MEDS: LEVETIRACETAM (500MG) 500 MG in IV NS 0.9% 100 ML IV SCH (01:07)
[2023-11-05] MEDS: IV D5/ 0.9% NACL 1,000 ML IV PRN (05:55)
[2023-11-05 07:00] VITALS: BP 127/63; TEMP 97.5; O2SAT 100
[2023-11-05 07:19] LABS: BASOPHILS # (AUTO) 0.1 K/uL (0.0-0.2); BASOPHILS % (AUTO) 1.2 % (0.0-2.0); EOSINOPHILS # (AUTO) 0.2 K/uL (0.0-0.7); EOSINOPHILS % (AUTO) 3.1 % (0.0-6.0); HEMATOCRIT 28 % (33-45); HEMOGLOBIN 9.5 g/dL (11.5-14.8); LYMPHOCYTES # (AUTO) 1.9 K/uL (0.8-4.8); LYMPHOCYTES % (AUTO) 30.6 % (20.0-44.0); MEAN CORPUSCULAR HEMOGLOBIN 32 PG (26.0-33.0); MEAN CORPUSCULAR HGB CONC 34 g/dl (31.0-36.0); MEAN CORPUSCULAR VOLUME 94 fL (82-100); MONOCYTES # (AUTO) 0.4 K/uL (0.1-1.30); MONOCYTES % (AUTO) 5.9 % (2.0-12.0); NEUTROPHILS # (AUTO) 3.7 K/uL (1.8-8.9); NEUTROPHILS % (AUTO) 59.2 % (43.0-81.0); PLATELET COUNT (AUTO) 329 K/uL (150-450); RED BLOOD CELL COUNT(AUTO) 3.01 MIL/uL (4.0-5.2); RED CELL DISTRIBUTION WIDTH 13.9 % (11.5-15.0); WHITE BLOOD COUNT (AUTO) 6.3 K/uL (4.3-11.0)
[2023-11-05 08:10] LABS: CALCIUM, SERUM 9.1 mg/dL (8.5-10.1); CREATININE 0.6 mg/dL (0.6-1.3); POTASSIUM 3.7 mmol/L (3.5-5.1)
[2023-11-05] MEDS: JEVITY 1.2 CAL 1,000 ML BOTTLE GT SCH (10:43)
[2023-11-05 16:00] VITALS: BP 127/75; TEMP 99; O2SAT 100
[2023-11-05 20:32] VITALS: BP 143/88; TEMP 98.8; O2SAT 96
[2023-11-05] MEDS: LEVETIRACETAM SOL (5 ML) 100 MG/ML UDC GT SCH (20:42)
[2023-11-06] MEDS: JEVITY 1.2 CAL 1,000 ML BOTTLE GT SCH (03:38)
[2023-11-06 06:44] LABS: BASOPHILS % (AUTO) 0.5 % (0.0-2.0); EOSINOPHILS # (AUTO) 0.2 K/uL (0.0-0.7); EOSINOPHILS % (AUTO) 2.9 % (0.0-6.0); HEMATOCRIT 27 % (33-45); HEMOGLOBIN 9.2 g/dL (11.5-14.8); LYMPHOCYTES # (AUTO) 1.8 K/uL (0.8-4.8); LYMPHOCYTES % (AUTO) 24.1 % (20.0-44.0); MEAN CORPUSCULAR HEMOGLOBIN 32 PG (26.0-33.0); MEAN CORPUSCULAR HGB CONC 35 g/dl (31.0-36.0); MEAN CORPUSCULAR VOLUME 91 fL (82-100); MONOCYTES # (AUTO) 0.5 K/uL (0.1-1.30); MONOCYTES % (AUTO) 6.4 % (2.0-12.0); NEUTROPHILS # (AUTO) 4.8 K/uL (1.8-8.9); NEUTROPHILS % (AUTO) 66.1 % (43.0-81.0); PLATELET COUNT (AUTO) 318 K/uL (150-450); RED BLOOD CELL COUNT(AUTO) 2.91 MIL/uL (4.0-5.2); RED CELL DISTRIBUTION WIDTH 13.6 % (11.5-15.0); WHITE BLOOD COUNT (AUTO) 7.3 K/uL (4.3-11.0)
[2023-11-06 06:55] LABS: CALCIUM, SERUM 9.4 mg/dL (8.5-10.1); CREATININE 0.6 mg/dL (0.6-1.3); POTASSIUM 3.5 mmol/L (3.5-5.1)
[2023-11-06] MEDS ORDERED: ACETAMINOPHEN 650 MG/20.3 ML UDC GT PRN (07:00)
[2023-11-06 07:30] VITALS: BP 127/62; TEMP 98.2; O2SAT 98
[2023-11-06] MEDS: LEVETIRACETAM SOL (5 ML) 100 MG/ML UDC GT SCH (08:32)
[2023-11-06 16:00] VITALS: BP 143/63; TEMP 98.2; O2SAT 99
== END 2023-11-06 16:45 | DRG 252 ==
LOC: ER 08:57 → TRANSITION 15:59 → MED 18:06
PROVIDERS: ADMIT Internal Medicine; ATTEND Internal Medicine
PROC: 0DH63UZ Insertion of Feeding Device into Stomach, Percutaneous Approach (ICD-10-PCS; principal; 2023-11-04)
DX: K94.23 Gastrostomy malfunction (principal); G93.49 Other encephalopathy; D63.8 Anemia in other chronic diseases classified elsewhere; E87.1 Hypo-osmolality and hyponatremia; R13.10 Dysphagia, unspecified; E86.1 Hypovolemia; I48.0 Paroxysmal atrial fibrillation; I10 Essential (primary) hypertension; G40.909 Epilepsy, unspecified, not intractable, without status epilepticus; Z79.01 Long term (current) use of anticoagulants; Z86.73 Personal history of transient ischemic attack (TIA), and cerebral infarction without residual deficits; K29.70 Gastritis, unspecified, without bleeding; Y83.8 Other surgical procedures as the cause of abnormal reaction of the patient, or of later complication, without mention of misadventure at the time of the procedure; Y73.8 Miscellaneous gastroenterology and urology devices associated with adverse incidents, not elsewhere classified; Y92.129 Unspecified place in nursing home as the place of occurrence of the external cause; Z20.822 Contact with and (suspected) exposure to COVID-19
CPT/HCPCS: 36415; 43246; 71045-TC; 80048-TC; 83735-TC; 84100-TC; 85025-TC; 85730-TC; A4223; G0378; J1953; J2704; J3490; J7030; J7042

== ENCOUNTER 2024-05-25 01:36 | Inpatient (IN) | payer OTHER, MEDICARE ==
[~2024-05-25] VITALS: Ht 152.4 cm; Wt 65.8 kg
[~2024-05-25 01:36] MED LIST changes: +APIX2.5T PO; -CLON0.1T GT; -GUAI100S9 GT; -HYDR-4076 GT; -IPRA3AMP22 IH; -LEVO250T59 GT; -PREG50CA GT; +ZINC454O5 TP
[2024-05-25] MEDS ORDERED: PANTOPRAZOLE 40 MG VIAL ONE (01:58)
[2024-05-25] MEDS ORDERED: ONDANSETRON HCL/PF 4 MG/2 ML VIAL ONE (01:58)
[2024-05-25] MEDS: PANTOPRAZOLE 80 MG in IV NS 0.9% 100 ML IV ONE (02:00)
[2024-05-25] MEDS: IV NS 0.9% 1,000 ML BAG IV ONE (02:00)
[2024-05-25] MEDS: ONDANSETRON HCL/PF 4 MG/2 ML VIAL IVP ONE (02:00)
[2024-05-25 02:05] LABS: BASOPHILS % (AUTO) 0.4 % (0.0-2.0); EOSINOPHILS # (AUTO) 0.6 K/uL (0.0-0.7); EOSINOPHILS % (AUTO) 6.3 % (0.0-6.0); HEMATOCRIT 32 % (33-45); HEMOGLOBIN 11.1 g/dL (11.5-14.8); LYMPHOCYTES # (AUTO) 1.8 K/uL (0.8-4.8); LYMPHOCYTES % (AUTO) 19.8 % (20.0-44.0); MEAN CORPUSCULAR HEMOGLOBIN 31 PG (26.0-33.0); MEAN CORPUSCULAR HGB CONC 34 g/dl (31.0-36.0); MEAN CORPUSCULAR VOLUME 91 fL (82-100); MONOCYTES # (AUTO) 0.6 K/uL (0.1-1.30); MONOCYTES % (AUTO) 6.4 % (2.0-12.0); NEUTROPHILS # (AUTO) 6.1 K/uL (1.8-8.9); NEUTROPHILS % (AUTO) 67.1 % (43.0-81.0); PLATELET COUNT (AUTO) 256 K/uL (150-450); RED BLOOD CELL COUNT(AUTO) 3.54 MIL/uL (4.0-5.2); RED CELL DISTRIBUTION WIDTH 13.4 % (11.5-15.0); WHITE BLOOD COUNT (AUTO) 9.1 K/uL (4.3-11.0)
[2024-05-25 02:20] LABS: ALANINE AMINOTRANSFERASE 23 U/L (12-78); ALBUMIN 2.8 g/dL (3.4-5.0); ALKALINE PHOSPHATASE 104 U/L (46-116); ASPARTATE AMINOTRANSFERASE < 5 U/L (15-37); BILIRUBIN,DIRECT 0.1 mg/dL (0.0-0.2); BILIRUBIN,TOTAL 0.3 mg/dL (0.2-1.0); CALCIUM, SERUM 8.9 mg/dL (8.5-10.1); CARBON DIOXIDE 29 mmol/L (21-32); CHLORIDE 104 mmol/L (98-107); CREATININE 0.7 mg/dL (0.6-1.3); GLUCOSE 115 mg/dL (74-106); LIPASE 36 U/L (16-77); POTASSIUM 4.2 mmol/L (3.5-5.1); SODIUM SERUM 141 mmol/L (136-145); TOTAL PROTEIN, SERUM 6.3 g/dL (6.4-8.2); UREA NITROGEN, BLOOD 37 mg/dL (7-18)
[2024-05-25 02:40] LABS: INR 0.97 (0.91-1.10); PARTIAL THROMBOPLASTIN TIME 26.4 SEC (24.3-34.3); PROTHROMBIN TIME 10.3 SECS (9.2-11.1)
[2024-05-25] MEDS ORDERED: IOHEXOL-300 100 ML VIAL IV ONE ×2 (04:13→21:49)
[2024-05-25 04:15] LABS: APPEARANCE,URINE CLOUDY (CLEAR); BILIRUBIN,URINE NEGATIVE (NEGATIVE); BLOOD, URINE 1+ Ery/uL (NEGATIVE); COLOR,URINE YELLOW (YELLOW); KETONES,URINE TRACE mg/dL (NEGATIVE); LEUKOCYTE ESTERASE ,URINE 3+ (NEGATIVE); NITRITE, URINE NEGATIVE (NEGATIVE); PROTEIN,URINE NEGATIVE (NEGATIVE); UGLUCOSE NEGATIVE (NEGATIVE); UROBILINOGEN,URINE 0.2 EU/dL (0.2)
[2024-05-25 04:54] LABS: WBC,URINE 21-50 /HPF (0-3)
[2024-05-25 04:57] LABS: CALCIUM OXALATE CRYSTALS,UR Rare /HPF (None Seen); TRIPLE PHOSPHATE CRYSTAL,UR Moderate /HPF (None Seen); URINE AMORPHOUS PHOSPHATES Many /HPF (None Seen)
[2024-05-25 04:58] LABS: ADD URINE CULTURE YES; BACTERIA,URINE 2+ /HPF (None Seen); SQUAMOUS EPITHELIAL CELL,UR Rare /HPF (None Seen)
[2024-05-25] MEDS ORDERED: PIPERACI/TAZO 3.375GM/D5W 50ML PB IV ONE (05:58)
[2024-05-25] MEDS: PIPERACILLIN /TAZOBACTAM 3.375 G in IV D5W 50 ML IV ONE (06:00)
[2024-05-25] MEDS ORDERED: ACETAMINOPHEN 325 MG TABLET PO PRN (07:00)
[2024-05-25] MEDS ORDERED: Z GUARD REMEDY 4 OZ OINT TP PRN (07:00)
[2024-05-25] MEDS ORDERED: ONDANSETRON HCL/PF 4 MG/2 ML VIAL IVP PRN (07:00)
[2024-05-25] MEDS ORDERED: MAGNESIUM HYDROXIDE 30 ML UDC PO PRN (07:00)
[2024-05-25] MEDS ORDERED: ZOLPIDEM TARTRATE 5 MG TABLET PO PRN (07:00)
[2024-05-25] MEDS ORDERED: MAG HYDROX/AL HYDROX/SIMETH 30 ML UDC PO PRN (07:00)
[2024-05-25 08:00] VITALS: BP 130/97; TEMP 98.2; O2SAT 95
[2024-05-25] MEDS: IV NS 0.9% 1,000 ML IV PRN (09:33)
[2024-05-25] MEDS: PANTOPRAZOLE 40 MG VIAL IV SCH (09:33)
[2024-05-25] MEDS: PIPERACILLIN /TAZOBACTAM 3.375 G in IV D5W 100 ML IV SCH (11:03)
[2024-05-25 11:07] LABS: BASOPHILS % (AUTO) 0.4 % (0.0-2.0); EOSINOPHILS # (AUTO) 0.4 K/uL (0.0-0.7); EOSINOPHILS % (AUTO) 5.3 % (0.0-6.0); HEMATOCRIT 31 % (33-45); HEMOGLOBIN 10.8 g/dL (11.5-14.8); LYMPHOCYTES # (AUTO) 1.2 K/uL (0.8-4.8); LYMPHOCYTES % (AUTO) 17.4 % (20.0-44.0); MEAN CORPUSCULAR HEMOGLOBIN 32 PG (26.0-33.0); MEAN CORPUSCULAR HGB CONC 35 g/dl (31.0-36.0); MEAN CORPUSCULAR VOLUME 91 fL (82-100); MONOCYTES # (AUTO) 0.3 K/uL (0.1-1.30); MONOCYTES % (AUTO) 4.1 % (2.0-12.0); NEUTROPHILS # (AUTO) 5.2 K/uL (1.8-8.9); NEUTROPHILS % (AUTO) 72.8 % (43.0-81.0); PLATELET COUNT (AUTO) 231 K/uL (150-450); RED BLOOD CELL COUNT(AUTO) 3.36 MIL/uL (4.0-5.2); RED CELL DISTRIBUTION WIDTH 13.3 % (11.5-15.0); WHITE BLOOD COUNT (AUTO) 7.2 K/uL (4.3-11.0)
[2024-05-25 11:31] LABS: ALANINE AMINOTRANSFERASE 31 U/L (12-78); ALBUMIN 2.8 g/dL (3.4-5.0); ALKALINE PHOSPHATASE 101 U/L (46-116); AMYLASE 39 U/L (25-115); ASPARTATE AMINOTRANSFERASE < 5 U/L (15-37); BILIRUBIN,DIRECT 0.1 mg/dL (0.0-0.2); BILIRUBIN,TOTAL 0.6 mg/dL (0.2-1.0); CALCIUM, SERUM 8.9 mg/dL (8.5-10.1); CARBON DIOXIDE 27 mmol/L (21-32); CHLORIDE 103 mmol/L (98-107); CREATININE 0.6 mg/dL (0.6-1.3); GLUCOSE 111 mg/dL (74-106); LIPASE 31 U/L (16-77); MAGNESIUM 2.1 mg/dL (1.8-2.4); POTASSIUM 4.7 mmol/L (3.5-5.1); SODIUM SERUM 141 mmol/L (136-145); TOTAL PROTEIN, SERUM 6.4 g/dL (6.4-8.2); UREA NITROGEN, BLOOD 27 mg/dL (7-18)
[2024-05-25 12:00] VITALS: BP 137/62; TEMP 97.7; O2SAT 99
[2024-05-25 12:37] VITALS: BP 137/62; TEMP 97.7; O2SAT 99
[2024-05-25] MEDS: IV LR 1000 ML 1,000 ML IV PRN (12:58)
[2024-05-25 12:59] LABS: OCCULT BLOOD STOOL NEGATIVE (NEGATIVE)
[2024-05-25 16:00] VITALS: BP 140/63; TEMP 98.8; O2SAT 100
[2024-05-25] MEDS ORDERED: ANESTHESIA TRAY IN PYXIS 1 EA TRAY MC ONE (16:34)
[2024-05-25 18:00] VITALS: BP 140/63; TEMP 98.8; O2SAT 100
[2024-05-25] MEDS ORDERED: DIATR MEGLU/DIATRIZOATE SODIUM 30 ML BOTTLE (GASTROGRAPHIN) ONE (18:39)
[2024-05-25 20:00] VITALS: BP 142/82; TEMP 98.1; O2SAT 97
[2024-05-25] MEDS ORDERED: IV NS 0.9% 250 ML IV ONE (21:49)
[2024-05-25] MEDS ORDERED: CT SWABBABLE VALVE TRANS SET 1 EA INFUS.SET MC ONE (21:50)
[2024-05-26] VITALS: BP 143/62; TEMP 98.2; O2SAT 98
[2024-05-26 04:00] VITALS: BP 145/89; TEMP 98.1; O2SAT 99
[2024-05-26 08:00] VITALS: BP 133/55; TEMP 98.2; O2SAT 95
[2024-05-26 16:00] VITALS: BP 135/77; TEMP 98.2; O2SAT 99
[2024-05-26 20:00] VITALS: BP 152/96; TEMP 97.9; O2SAT 97
[2024-05-27 04:00] VITALS: BP 149/62; TEMP 97.3; O2SAT 97
[2024-05-27 07:42] LABS: BASOPHILS % (AUTO) 0.5 % (0.0-2.0); EOSINOPHILS # (AUTO) 0.3 K/uL (0.0-0.7); EOSINOPHILS % (AUTO) 3.7 % (0.0-6.0); HEMATOCRIT 32 % (33-45); HEMOGLOBIN 10.7 g/dL (11.5-14.8); LYMPHOCYTES # (AUTO) 1.4 K/uL (0.8-4.8); LYMPHOCYTES % (AUTO) 18.9 % (20.0-44.0); MEAN CORPUSCULAR HEMOGLOBIN 32 PG (26.0-33.0); MEAN CORPUSCULAR HGB CONC 34 g/dl (31.0-36.0); MEAN CORPUSCULAR VOLUME 94 fL (82-100); MONOCYTES # (AUTO) 0.5 K/uL (0.1-1.30); MONOCYTES % (AUTO) 6.4 % (2.0-12.0); NEUTROPHILS # (AUTO) 5.2 K/uL (1.8-8.9); NEUTROPHILS % (AUTO) 70.5 % (43.0-81.0); PLATELET COUNT (AUTO) 182 K/uL (150-450); RED BLOOD CELL COUNT(AUTO) 3.39 MIL/uL (4.0-5.2); RED CELL DISTRIBUTION WIDTH 13.2 % (11.5-15.0); WHITE BLOOD COUNT (AUTO) 7.4 K/uL (4.3-11.0)
[2024-05-27 08:00] VITALS: BP 156/91; TEMP 97.9; O2SAT 96
[2024-05-27 08:04] LABS: CALCIUM, SERUM 8.7 mg/dL (8.5-10.1); CARBON DIOXIDE 20 mmol/L (21-32); CHLORIDE 106 mmol/L (98-107); CREATININE 0.6 mg/dL (0.6-1.3); GLUCOSE 76 mg/dL (74-106); POTASSIUM 4.2 mmol/L (3.5-5.1); SODIUM SERUM 137 mmol/L (136-145); UREA NITROGEN, BLOOD 13 mg/dL (7-18)
[2024-05-27] MEDS: IV D5/0.45 NACL 1,000 ML IV PRN (09:28)
[2024-05-27 16:00] VITALS: BP 116/66; TEMP 98.8; O2SAT 96
[2024-05-27 18:00] VITALS: BP 116/66; TEMP 98.8; O2SAT 100
[2024-05-27] MEDS ORDERED: IV NS 0.9% 250 ML IV ONE (18:03)
[2024-05-27] MEDS ORDERED: IOHEXOL-300 100 ML VIAL IV ONE (18:03)
[2024-05-27 20:00] VITALS: BP 144/73; TEMP 97.7; O2SAT 96
[2024-05-28 04:00] VITALS: BP 146/74; TEMP 98.4; O2SAT 98
[2024-05-28 08:00] VITALS: BP_SYST 124; BP_SYST 138; BP_DIAS 66; BP_DIAS 90; TEMP 97.5; TEMP 98.1; O2SAT 97; O2SAT 98
[2024-05-28 08:01] LABS: CALCIUM, SERUM 9.2 mg/dL (8.5-10.1); CARBON DIOXIDE 22 mmol/L (21-32); CHLORIDE 103 mmol/L (98-107); CREATININE 0.7 mg/dL (0.6-1.3); GLUCOSE 125 mg/dL (74-106); POTASSIUM 3.2 mmol/L (3.5-5.1); SODIUM SERUM 137 mmol/L (136-145); UREA NITROGEN, BLOOD 12 mg/dL (7-18)
[2024-05-28 08:02] LABS: BASOPHILS % (AUTO) 0.4 % (0.0-2.0); EOSINOPHILS # (AUTO) 0.2 K/uL (0.0-0.7); EOSINOPHILS % (AUTO) 2.9 % (0.0-6.0); HEMATOCRIT 28 % (33-45); HEMOGLOBIN 9.9 g/dL (11.5-14.8); LYMPHOCYTES # (AUTO) 1.3 K/uL (0.8-4.8); LYMPHOCYTES % (AUTO) 15.5 % (20.0-44.0); MEAN CORPUSCULAR HEMOGLOBIN 32 PG (26.0-33.0); MEAN CORPUSCULAR HGB CONC 35 g/dl (31.0-36.0); MEAN CORPUSCULAR VOLUME 90 fL (82-100); MONOCYTES # (AUTO) 0.8 K/uL (0.1-1.30); MONOCYTES % (AUTO) 9.3 % (2.0-12.0); NEUTROPHILS # (AUTO) 5.8 K/uL (1.8-8.9); NEUTROPHILS % (AUTO) 71.9 % (43.0-81.0); PLATELET COUNT (AUTO) 228 K/uL (150-450); RED BLOOD CELL COUNT(AUTO) 3.11 MIL/uL (4.0-5.2); RED CELL DISTRIBUTION WIDTH 12.9 % (11.5-15.0); WHITE BLOOD COUNT (AUTO) 8.1 K/uL (4.3-11.0)
[2024-05-28] MEDS: POTASSIUM CL. PREMIX PERIPHER. 50 ML IV SCH (09:34)
[2024-05-28 16:00] VITALS: BP 146/76; TEMP 208.2; TEMP 97.9; O2SAT 97
== END 2024-05-28 17:08 | DRG 249 ==
LOC: ER 01:56 → TELE1 06:16 → MEDSG1 05-26 09:57
PROVIDERS: ADMIT Internal Medicine; ATTEND Internal Medicine
PROC: 0DB68ZX Excision of Stomach, Via Natural or Artificial Opening Endoscopic, Diagnostic (ICD-10-PCS; principal; 2024-05-25)
DX: A08.4 Viral intestinal infection, unspecified (principal); G93.41 Metabolic encephalopathy; E43 Unspecified severe protein-calorie malnutrition; E88.09 Other disorders of plasma-protein metabolism, not elsewhere classified; R47.01 Aphasia; K83.8 Other specified diseases of biliary tract; I48.91 Unspecified atrial fibrillation; E86.0 Dehydration; E11.9 Type 2 diabetes mellitus without complications; E78.5 Hyperlipidemia, unspecified; I10 Essential (primary) hypertension; K20.90 Esophagitis, unspecified without bleeding; Z86.73 Personal history of transient ischemic attack (TIA), and cerebral infarction without residual deficits; G40.909 Epilepsy, unspecified, not intractable, without status epilepticus; K29.70 Gastritis, unspecified, without bleeding; Z79.01 Long term (current) use of anticoagulants; Z90.49 Acquired absence of other specified parts of digestive tract; Z93.1 Gastrostomy status; K44.9 Diaphragmatic hernia without obstruction or gangrene; Z68.28 Body mass index [BMI] 28.0-28.9, adult
CPT/HCPCS: 36415; 71045-TC; 80048-TC; 80076-TC; 81001; 82150-TC; 82272-TC; 83690-TC; 83735-TC; 84100-TC; 84443-TC; 84484-TC; 85025-TC; 85730-TC; 87081-TC; 88305-TC; 88313-TC; 88342; A4223; G0378; J2405; J2470; J2543; J2704; J3480; J3490; J7030; J7050; J7060; J7120; Q9963; Q9967

== ENCOUNTER 2024-11-13 10:59 | Inpatient (IN) | payer OTHER, MEDICARE ==
[~2024-11-13] VITALS: Ht 165.1 cm; Wt 68.0 kg
[~2024-11-13 10:59] MED LIST changes: +APIX2.5T GT; -APIX2.5T PO; -LISI20TA30 GT; -ZINC454O5 TP
[2024-11-13 12:12] LABS: BASOPHILS % (AUTO) 0.4 % (0.0-2.0); EOSINOPHILS # (AUTO) 0.2 K/uL (0.0-0.7); EOSINOPHILS % (AUTO) 2.5 % (0.0-6.0); HEMATOCRIT 39 % (33-45); HEMOGLOBIN 13.4 g/dL (11.5-14.8); LYMPHOCYTES # (AUTO) 1.8 K/uL (0.8-4.8); LYMPHOCYTES % (AUTO) 20.8 % (20.0-44.0); MEAN CORPUSCULAR HEMOGLOBIN 32 PG (26.0-33.0); MEAN CORPUSCULAR HGB CONC 34 g/dl (31.0-36.0); MEAN CORPUSCULAR VOLUME 92 fL (82-100); MONOCYTES # (AUTO) 0.4 K/uL (0.1-1.30); MONOCYTES % (AUTO) 4.7 % (2.0-12.0); NEUTROPHILS # (AUTO) 6.2 K/uL (1.8-8.9); NEUTROPHILS % (AUTO) 71.6 % (43.0-81.0); PLATELET COUNT (AUTO) 273 K/uL (150-450); RED BLOOD CELL COUNT(AUTO) 4.24 MIL/uL (4.0-5.2); RED CELL DISTRIBUTION WIDTH 13.3 % (11.5-15.0); WHITE BLOOD COUNT (AUTO) 8.6 K/uL (4.3-11.0)
[2024-11-13 12:23] LABS: INR 0.95 (0.91-1.10); PARTIAL THROMBOPLASTIN TIME 23.4 SEC (24.3-34.3); PROTHROMBIN TIME 10.1 SECS (9.2-11.1)
[2024-11-13 12:44] LABS: CALCIUM, SERUM 9.7 mg/dL (8.5-10.1); CREATININE 0.8 mg/dL (0.6-1.3); POTASSIUM 3.9 mmol/L (3.5-5.1)
[2024-11-13] MEDS ORDERED: VALP250S3 GT (14:29)
[2024-11-13 20:00] VITALS: BP 131/60; TEMP 98.2; O2SAT 97
[2024-11-13] MEDS ORDERED: Z GUARD REMEDY 4 OZ OINT TP PRN (21:30)
[2024-11-13] MEDS ORDERED: ACETAMINOPHEN 650 MG/SUPP.RECT RC PRN (21:30)
[2024-11-13] MEDS ORDERED: ONDANSETRON HCL/PF 4 MG/2 ML VIAL IVP PRN (21:30)
[2024-11-13] MEDS: IV D5/0.45 NACL 1,000 ML IV SCH (21:33)
[2024-11-13] MEDS ORDERED: LEVETIRACETAM (500MG) 500 MG/5 ML VIAL IV ONE (22:25)
[2024-11-13] MEDS: LEVETIRACETAM (500MG) 500 MG in IV NS 0.9% 100 ML IV SCH (23:35)
[2024-11-14 08:00] VITALS: BP 123/64; TEMP 98.2; O2SAT 97
[2024-11-14] MEDS: PANTOPRAZOLE 40 MG VIAL IV SCH (09:18)
[2024-11-14] MEDS: LEVETIRACETAM (500MG) 500 MG in IV NS 0.9% 100 ML IV SCH (09:18)
[2024-11-14 11:55] LABS: BASOPHILS % (AUTO) 0.5 % (0.0-2.0); EOSINOPHILS # (AUTO) 0.1 K/uL (0.0-0.7); EOSINOPHILS % (AUTO) 2.2 % (0.0-6.0); HEMATOCRIT 33 % (33-45); HEMOGLOBIN 11.1 g/dL (11.5-14.8); LYMPHOCYTES # (AUTO) 1.3 K/uL (0.8-4.8); LYMPHOCYTES % (AUTO) 25.7 % (20.0-44.0); MEAN CORPUSCULAR HEMOGLOBIN 32 PG (26.0-33.0); MEAN CORPUSCULAR HGB CONC 34 g/dl (31.0-36.0); MEAN CORPUSCULAR VOLUME 94 fL (82-100); MONOCYTES # (AUTO) 0.3 K/uL (0.1-1.30); MONOCYTES % (AUTO) 4.9 % (2.0-12.0); NEUTROPHILS # (AUTO) 3.5 K/uL (1.8-8.9); NEUTROPHILS % (AUTO) 66.7 % (43.0-81.0); PLATELET COUNT (AUTO) 215 K/uL (150-450); RED BLOOD CELL COUNT(AUTO) 3.45 MIL/uL (4.0-5.2); RED CELL DISTRIBUTION WIDTH 13.2 % (11.5-15.0); WHITE BLOOD COUNT (AUTO) 5.2 K/uL (4.3-11.0)
[2024-11-14 12:09] LABS: CALCIUM, SERUM 9.2 mg/dL (8.5-10.1); CARBON DIOXIDE 27 mmol/L (21-32); CHLORIDE 107 mmol/L (98-107); CREATININE 0.7 mg/dL (0.6-1.3); GLUCOSE 101 mg/dL (74-106); PHOSPHORUS 3.1 mg/dL (2.5-4.9); POTASSIUM 4.1 mmol/L (3.5-5.1); SODIUM SERUM 140 mmol/L (136-145); UREA NITROGEN, BLOOD 22 mg/dL (7-18)
[2024-11-14 20:00] VITALS: BP 133/72; TEMP 97.9; O2SAT 94
[2024-11-15] MEDS ORDERED: ACETAMINOPHEN ES 500 MG TABLET GT PRN (07:30)
[2024-11-15] MEDS ORDERED: HYDROCODONE/APAP 5/325MG TABLET GT PRN (07:30)
[2024-11-15] MEDS ORDERED: JEVITY 1.5 CAL LIQUID 1,000 ML BOTTLE GT SCH (07:30)
[2024-11-15] MEDS ORDERED: BISACODYL SUPP (10 MG) 10 MG/SUPP.RECT SUPP.RECT RC PRN (07:30)
[2024-11-15] MEDS ORDERED: NA PHOS,M-B/NA PHOS,DI-BA 1 EA ENEMA RC PRN (07:30)
[2024-11-15 08:00] VITALS: BP 134/66; TEMP 98.4; O2SAT 96
[2024-11-15 08:07] VITALS: BP 134/66; TEMP 98.4; O2SAT 96
[2024-11-15] MEDS ORDERED: ACETAMINOPHEN 650 MG/20.3 ML UDC GT PRN (08:30)
[2024-11-15] MEDS: VALPROIC ACID 250 MG/5 ML UDC GT SCH (09:00)
[2024-11-15] MEDS: DOCUSATE SODIUM LIQ 100 MG/10 ML UDC GT SCH (09:00)
[2024-11-15] MEDS: DILTIAZEM HCL 30 MG TABLET GT SCH (09:00)
[2024-11-15] MEDS: APIXABAN 2.5 MG TABLET GT SCH (09:00)
[2024-11-15] MEDS: LEVETIRACETAM SOL (5 ML) 100 MG/ML UDC GT SCH (09:00)
[2024-11-15] MEDS: SENNOSIDES 8.6 MG TABLET GT SCH (09:00)
[2024-11-15] MEDS: METOPROLOL TARTRATE 25 MG TABLET GT SCH (09:00)
[2024-11-15] MEDS ORDERED: JEVITY 1.5 CAL LIQUID 1,000 ML BOTTLE GT PRN (12:00)
[2024-11-15] MEDS: JEVITY 1.2 CAL 1,000 ML BOTTLE GT PRN (13:51)
[2024-11-15] MEDS ORDERED: JEVITY 1.2 CAL 1,000 ML BOTTLE GT PRN (14:25)
[2024-11-15 15:53] VITALS: BP 132/61; TEMP 98.4; O2SAT 96
[2024-11-15 17:42] VITALS: BP 132/61
== END 2024-11-15 20:49 | DRG 252 ==
LOC: ER 11:05 → MED 16:12
PROVIDERS: ATTEND Internal Medicine
PROC: 0DH63UZ Insertion of Feeding Device into Stomach, Percutaneous Approach (ICD-10-PCS; principal; 2024-11-14)
DX: K94.23 Gastrostomy malfunction (principal); N17.0 Acute kidney failure with tubular necrosis; G93.40 Encephalopathy, unspecified; G93.49 Other encephalopathy; F03.90 Unspecified dementia, unspecified severity, without behavioral disturbance, psychotic disturbance, mood disturbance, and anxiety; I10 Essential (primary) hypertension; I48.0 Paroxysmal atrial fibrillation; G40.909 Epilepsy, unspecified, not intractable, without status epilepticus; K20.90 Esophagitis, unspecified without bleeding; K29.70 Gastritis, unspecified, without bleeding; R13.10 Dysphagia, unspecified; Z79.01 Long term (current) use of anticoagulants; Z86.73 Personal history of transient ischemic attack (TIA), and cerebral infarction without residual deficits; K44.9 Diaphragmatic hernia without obstruction or gangrene; Y83.3 Surgical operation with formation of external stoma as the cause of abnormal reaction of the patient, or of later complication, without mention of misadventure at the time of the procedure; Y92.129 Unspecified place in nursing home as the place of occurrence of the external cause; I11.0 Hypertensive heart disease with heart failure; I50.9 Heart failure, unspecified; J98.11 Atelectasis
CPT/HCPCS: 36415; 43246; 71045-TC; 80048-TC; 83735-TC; 84100-TC; 85025-TC; 85730-TC; 87081-TC; A4223; G0378; J1953; J2470; J2704; J3490; J7030